=== PATIENT | female | born 1940 | race Caucasian/White ===

== ENCOUNTER → 2017-07-10 | Outpatient (CLI) | payer OTHER | END | disposition home or self-care (01) | DX: M17.12 Unilateral primary osteoarthritis, left knee (principal); R26.2 Difficulty in walking, not elsewhere classified; M25.562 Pain in left knee; M25.662 Stiffness of left knee, not elsewhere classified; M62.81 Muscle weakness (generalized); Z74.1 Need for assistance with personal care | CPT/HCPCS: 97161 GP; 97165 GO; 97530 GP; 97535 GO; G8978 GP; G8979 GP; G8980 GP; G8987 GO; G8988 GO; G8989 GO ==

== ENCOUNTER 2017-07-29 21:59 | Inpatient (IN) | payer OTHER ==
[~2017-07-29] VITALS: Ht 154.9 cm; Wt 87.0 kg
[~2017-07-29 21:59] MED LIST: ACTOS15 MG PO; ALLEGRA60 MG PO; AMARYL4 MG PO; BACLOFEN10 MG PO; CALCIUM 600 +1 EAC8 PO; HYDROCHLOROTH12.5 M3 PO; LEVEMIR FL100 UNIT/1 SC; LEVOTHYROXINE112 MCG PO; LO-DOSE ASPIRIN81 M1 PO; OMEPRAZOLE40 M1 PO; TYLENOL EXTRA500 MG PO; VITAMIN D32000 UNI1 PO; VOLTAREN 1% GE100 GM TP; ZOCOR40 MG PO
[2017-07-30 08:47] VITALS: BP 147/69
[2017-07-30 13:49] LABS: HEMOGLOBIN 13.5 G/DL (11.9-15.5); MCH 31.4 PG (29.0-34.0); MCHC 32.9 G/DL (30.0-36.0); MCV 95.3 FL (83-99); PLATELET COUNT 222 K/uL (156-360); RBC DIS.WIDTH-CV 12.8 % (11.8-14.6); RBC DIS.WIDTH-SD 44.8 % (39-53); WHITE BLOOD COUNT 4.9 K/uL (4.1-10.2)
[2017-07-30 15:48] VITALS: BP 156/68
[2017-07-30 20:28] VITALS: BP 176/72
[2017-07-31 00:15] VITALS: BP 173/75
[2017-07-31 04:15] VITALS: BP 170/74
[2017-07-31 06:25] LABS: HEMATOCRIT 44.9 % (36.0-46.0); HEMOGLOBIN 14.5 G/DL (11.9-15.5); MCV 94.7 FL (83-99)
[2017-07-31 06:47] LABS: CHLORIDE 99 MEQ/L (99-109); GFR ESTIMATE (CALCULATED) 57 mL/min/; GLUCOSE 231 mg/dL (70-99); POTASSIUM 4.1 MEQ/L (3.7-5.4); SODIUM 135 MEQ/L (136-147); UREA NITROGEN (BUN) 19 mg/dL (9-23)
[2017-07-31 08:10] VITALS: BP 180/73
[2017-07-31 12:09] VITALS: BP 147/64
[2017-07-31 15:34] VITALS: BP 138/63
[2017-07-31 19:55] VITALS: BP 156/68
[2017-08-01 00:28] VITALS: BP 148/68
[2017-08-01 04:00] VITALS: BP 138/65
[2017-08-01 06:28] LABS: HEMATOCRIT 35.5 % (36.0-46.0); MCV 96.2 FL (83-99)
[2017-08-01 06:29] LABS: HEMOGLOBIN 11.4 G/DL (11.9-15.5)
[2017-08-01 08:25] VITALS: BP 170/73
[2017-08-01 11:47] VITALS: BP 131/59
[2017-08-01 16:10] VITALS: BP 108/55
[2017-08-01 20:15] VITALS: BP 139/60
[2017-08-02 00:30] VITALS: BP 132/58
[2017-08-02 04:00] VITALS: BP 142/60
[2017-08-02 07:53] VITALS: BP 132/88
[2017-08-02] MEDS ORDERED: ENDOCET 5-3251 EACH PO (08:21)
[2017-08-02] MEDS ORDERED: DOCUSATE SODIU100 MG PO (08:21)
[2017-08-02] MEDS ORDERED: LOVENOX40 MG/0.4 SC (08:21)
[2017-08-02] MEDS ORDERED: CELECOXIB200 MG PO (08:21)
[2017-08-02 12:09] VITALS: BP 129/60
== END 2017-08-02 13:53 | DRG 470 ==
LOC: ENRESERV 21:59 → 3WEST 07-30 07:37 → 2SOUTH 07-30 07:37 → 3WEST 07-30 14:56 → 2SOUTH 07-30 14:57 → 3WEST 08-02 13:53
PROVIDERS: Orthopaedic Surgery
PROC: 0SRD0J9 Replacement of Left Knee Joint with Synthetic Substitute, Cemented, Open Approach (ICD-10-PCS; principal; 2017-07-30)
DX: M17.12 Unilateral primary osteoarthritis, left knee (principal); E55.9 Vitamin D deficiency, unspecified; E78.00 Pure hypercholesterolemia, unspecified; E89.0 Postprocedural hypothyroidism; G89.29 Other chronic pain; I87.2 Venous insufficiency (chronic) (peripheral); M81.0 Age-related osteoporosis without current pathological fracture; E66.9 Obesity, unspecified; N18.3 Chronic kidney disease, stage 3 (moderate); I12.9 Hypertensive chronic kidney disease with stage 1 through stage 4 chronic kidney disease, or unspecified chronic kidney disease; E11.22 Type 2 diabetes mellitus with diabetic chronic kidney disease; Z90.710 Acquired absence of both cervix and uterus; Z88.5 Allergy status to narcotic agent; Z88.2 Allergy status to sulfonamides; Z79.82 Long term (current) use of aspirin; Z68.36 Body mass index [BMI] 36.0-36.9, adult; Z83.3 Family history of diabetes mellitus; Z82.49 Family history of ischemic heart disease and other diseases of the circulatory system; Z80.1 Family history of malignant neoplasm of trachea, bronchus and lung
CPT/HCPCS: 71045; 73560; 80048; 82948; 85014; 85018; 85027; C1713; J0131; J0690; J1170; J1650; J2405; J2795; J7050; S0020